=== PATIENT | female | born 1995 | race Caucasian/White ===

== ENCOUNTER 2016-03-21 21:57 | Emergency (ER) | payer OTHER ==
[2016-03-21 22:06] VITALS: BP 121/72
[2016-03-22] MEDS ORDERED: Ibuprofen TAB* 600 MG PO ONE (00:14)
--- NOTE | 2016-03-22 00:31 | ED ---
Lower Extremity - HPI Summary HPI Summary: [facility] and rolled her ankle when advancing forward. Unable to bear weight and now swollen. Denies knee or toe pain. No allev factors attempted. - History of Current Complaint Chief Complaint: EDExtremityLower Stated Complaint: LEFT FOOT INJURY Time Seen by Provider: 03/22/16 00:11 Hx Obtained From: Patient Onset of Pain: Immediate Severity Initially: Mild Severity Currently: Mild Pain Intensity: 5 Timing: Constant Location: Is Discrete @ - L lateral ankle/foot Character Of Pain: Aching Associated Signs And Symptoms: Positive: Swelling - Allergies/Home Medications Allergies/Adverse Reactions: Allergies Allergy/AdvReac Type Severity Reaction Status Date / Time Fish Allergy Allergy Unknown Verified 03/21/16 22:02 Reaction Details Shellfish Allergy Allergy Anaphylatic Verified 03/21/16 22:02 Shock PMH/Surg Hx/FS Hx/Imm Hx Previously Healthy: Yes Infectious Disease History: No Infectious Disease History: Denies: Traveled Outside the [place] in Last 30 Days - Social History Alcohol Use: Rare Substance Use Type: Reports: None Smoking Status (MU): Never Smoked Tobacco Review of Systems Positive: Arthralgia All Other Systems Reviewed And Are Negative: Yes Physical Exam Triage Information Reviewed: Yes Vital Signs On Initial Exam: Initial Vitals Temp Pulse Resp BP Pulse Ox 98.3 F 75 16 121/72 100 03/21/16 22:02 03/21/16 22:02 03/21/16 22:02 03/21/16 22:02 03/21/16 22:02 Vital Signs Reviewed: Yes Appearance: Positive: Well-Appearing, No Pain Distress, Well-Nourished Skin: Positive: Warm, Skin Color Reflects Adequate Perfusion, Dry Respiratory/Lung Sounds: Positive: Clear to Auscultation, Breath Sounds Present Cardiovascular: Positive: Normal, RRR, Pulses are Symmetrical in both Upper and Lower Extremities Musculoskeletal: Positive: Strength/ROM Intact, Pain @ - L ATF ligament distribution and lateral malleolus. SILT S/S/T/DP/SP intact bilater. 5/5 EHL/ FHL/DF/PF bilateral. Cap refil less than 2 seconds. Neurological: Positive: Normal, Sensory/Motor Intact, Alert, Oriented to Person Place, Time, CN Intact II-III, Reflexes Intact, Abnormal Gait - Due to pain and unable to bear weight. Diagnostics - Vital Signs Vital Signs Temp Pulse Resp BP Pulse Ox 03/21/16 22:02 98.3 F 75 16 121/72 100 - Laboratory Lab Statement: Any lab studies that have been ordered have been reviewed, and results considered in the medical decision making process. Lower Extremity Course/Dx - Diagnoses Differential Diagnosis/HQI/PQRI: Positive: Fracture (Closed), Sprain, Strain, Other - Primary concern for moderate grade ankle sprain vs distal fibula fx. No knee or toe pains. Provider Diagnoses: Ankle sprain Discharge - Discharge Plan Condition: Stable Disposition: HOME Patient Education Materials: Ankle Sprain (ED) Referrals: [facility] LESTER Lomeli [Primary Care Provider] - If Needed
--- NOTE | 2016-03-22 07:52 | RAD ---
Indication: Lateral malleolus region pain and edema following injury. Comparison: None. Technique: AP, mortise, and lateral views LEFT ankle. Report: Normal articular alignment. Negative for fracture or osteochondral lesion. Unremarkable soft tissue contours. IMPRESSION: Negative exam.
== END 2016-03-22 02:00 | disposition home or self-care (01) ==
LOC: ED 21:57
DX: S93.402A Sprain of unspecified ligament of left ankle, initial encounter (principal); X50.9XXA Other and unspecified overexertion or strenuous movements or postures, initial encounter; Y93.89 Activity, other specified; Y92.9 Unspecified place or not applicable; R60.0 Localized edema
CPT/HCPCS: 99282; A9270-GY

== ENCOUNTER 2017-06-22 12:39 | Emergency (ER) | payer OTHER ==
[2017-06-22 12:58] VITALS: BP 108/77
--- NOTE | 2017-06-22 13:24 | UC ---
Throat Pain/Nasal Dany HPI - HPI Summary HPI Summary: c/o sore throat and gland swelling for several days. Denies fever, cough, or nasal discharge. History of Hypothyroidism, depression and anxiety. LMD 5 days ago. - History of Current Complaint Chief Complaint: UCRespiratory Stated Complaint: [place]S SORE THROAT Time Seen by Provider: 06/22/17 12:45 Hx Obtained From: Patient Hx Last Menstrual Period: IUD IN PLACE ?: No Onset/Duration: Sudden Onset, Lasting Days Severity: Moderate Pain Intensity: 6 Cough: None Associated Signs & Symptoms: Positive: Dysphagia - Epiglottits Risk Factors Epiglottis Risk Factors: Negative - Allergies/Home Medications Allergies/Adverse Reactions: Allergies Allergy/AdvReac Type Severity Reaction Status Date / Time MS Fish Allergy Allergy Unknown Verified 06/22/17 12:50 [Fish Allergy] Reaction Details MS Shellfish Allergy Allergy Anaphylatic Verified 06/22/17 12:50 [Shellfish Allergy] Shock Home Medications: Home Medications Levonorgestrel (Iud) [Mirena IUD] 1 udc VAGINAL DAILY 06/22/17 [History Confirmed 06/22/17] PMH/Surg Hx/FS Hx/Imm Hx Previously Healthy: Yes Endocrine History: Hypothyroidism Psychological History: Anxiety, Depression - Surgical History Surgical History: Yes Surgery Procedure, Year, and Place: FEB 2017: REPAIR OF RIGHT ANKLE - Social History Alcohol Use: Rare Substance Use Type: None Smoking Status (MU): Never Smoked Tobacco Review of Systems Constitutional: Negative ENT: Sore Throat All Other Systems Reviewed And Are Negative: Yes Physical Exam Triage Information Reviewed: Yes Appearance: Well-Appearing, No Pain Distress, Well-Nourished Vital Signs: Initial Vital Signs Temp 98.8 F 06/22/17 12:52 Pulse 70 06/22/17 12:52 Resp 16 06/22/17 12:52 BP 108/77 06/22/17 12:52 Pulse Ox 100 06/22/17 12:52 Vital Signs Reviewed: Yes Eyes: Positive: Conjunctiva Clear ENT: Positive: Pharyngeal erythema, TMs normal, Tonsillar swelling, Tonsillar exudate, Uvula midline Neck exam: Normal Neck: Positive: Supple, Enlarged Nodes @ - anterior left neck Respiratory: Positive: Chest non-tender, Lungs clear, Normal breath sounds, No respiratory distress Cardiovascular: Positive: RRR, No Murmur, Pulses Normal, Brisk Capillary Refill Throat Pain/Nasal Course/Dx - Course Course Of Treatment: pharyngitis, presence of exudates, start amoxil as prescribed, continue oral hydration ,F/u with PCP in 2 weeks. - Differential Dx/Diagnosis Provider Diagnoses: Pharyngitis Discharge - Sign-Out/Discharge Documenting (check all that apply): Discharge/Admit/Transfer - Discharge Plan Condition: Good Disposition: HOME Prescriptions: Amoxicillin PO (*) [Amoxicillin 875 MG (*)] 875 mg PO BID 10 Days #20 tab Patient Education Materials: Amoxicillin (By mouth), Pharyngitis (ED) Referrals: [facility] - Abram DÍAZ [Primary Care Provider] - - Billing Disposition and Condition Condition: GOOD Disposition: HOME
== END 2017-06-22 13:39 | disposition home or self-care (01) ==
LOC: UCEAST 12:39
DX: J02.9 Acute pharyngitis, unspecified (principal); R59.1 Generalized enlarged lymph nodes; E03.9 Hypothyroidism, unspecified; F41.9 Anxiety disorder, unspecified; F32.9 Major depressive disorder, single episode, unspecified
CPT/HCPCS: 87070; 87651; 99212; G0463

== ENCOUNTER 2017-07-22 14:50 | Emergency (ER) | payer OTHER ==
[2017-07-22 15:10] VITALS: BP 118/84
--- NOTE | 2017-07-22 15:15 | UC ---
UC General HPI - HPI Summary HPI Summary: 22 yo female c/o several days sinus congestion, sniffles and cough. Feels that the cold has gone into her chest. No hemoptysis, no chest pain. No rash. No GI issues, except with a lot of coughing. no rash. no gi/gu issues. Hx bronchitis in the past. Immun (incl tdap utd) Has felt sick for the past month -> [facility] Seen by outlying physician 8 days ago, advised viral bronchitis, rx albuterol. This helped but sx worse, and albuterol not effective today. - History of Current Complaint Chief Complaint: UCRespiratory Stated Complaint: COUGH Time Seen by Provider: 07/22/17 15:12 Hx Obtained From: Patient Hx Last Menstrual Period: unknown Pain Intensity: 3 - Allergy/Home Medications Allergies/Adverse Reactions: Allergies Allergy/AdvReac Type Severity Reaction Status Date / Time shellfish derived Allergy Anaphylatic Verified 07/22/17 15:19 Shock fish allergy Allergy Unknown Uncoded 07/22/17 15:19 Reaction Details Home Medications: Home Medications Albuterol HFA INHALER* [Ventolin HFA Inhaler*] 1 puff IH Q6HR 07/22/17 [History Confirmed 07/22/17] FLUoxetine CAP* [Prozac CAP*] 20 mg PO DAILY 07/22/17 [History Confirmed ] Levothyroxine TAB* [Synthroid 125 MCG TAB*] 125 mg PO 07/22/17 [History] Levothyroxine TAB* [Synthroid 75 MCG TAB*] 75 mcg PO DAILY 07/22/17 [History Confirmed 07/22/17] buPROPion HCl [Bupropion HCl Sr] 150 mg PO DAILY 07/22/17 [History Confirmed 01/27] PMH/Surg Hx/FS Hx/Imm Hx - Additional Past Medical History Additional PMH: hx ramo's dz Previously Healthy: Yes - Surgical History Surgical History: Yes Surgery Procedure, Year, and Place: FEB 2017: REPAIR OF RIGHT ANKLE - Family History Known Family History: Positive: Unknown - Social History Occupation: Student Alcohol Use: Rare Substance Use Type: None Smoking Status (MU): Never Smoked Tobacco Review of Systems Constitutional: Fever, Fatigue Skin: Negative Eyes: Negative ENT: Sore Throat, Nasal Discharge, Sinus Congestion Respiratory: Cough Cardiovascular: Negative Gastrointestinal: Negative Genitourinary: Negative Motor: Negative Neurovascular: Negative Musculoskeletal: Negative Neurological: Negative Psychological: Negative Is Patient Immunocompromised?: No All Other Systems Reviewed And Are Negative: Yes Physical Exam Triage Information Reviewed: Yes Appearance: Well-Nourished - sitting up, nad Vital Signs: Initial Vital Signs Temp 98.5 F 07/22/17 14:52 Pulse 88 07/22/17 14:52 Resp 18 07/22/17 14:52 BP 118/84 07/22/17 14:52 Pulse Ox 100 07/22/17 14:52 Vital Signs Reviewed: Yes Eye Exam: Normal - grossly normal ENT: Positive: Pharyngeal erythema - mild post phary redness, no sores / exudates appreciated. Uvula midline., Nasal congestion, TM dull Neck exam: Normal Neck: Positive: Supple, Nontender Respiratory Exam: Other - RR normal + rhonchorus cough. + scattered exp wheeze Respiratory: Positive: No accessory muscle use, Respiratory distress, Wheezing Cardiovascular Exam: Normal Cardiovascular: Positive: RRR, No Murmur, Pulses Normal, Brisk Capillary Refill Abdominal Exam: Normal Abdomen Description: Positive: Nontender Musculoskeletal Exam: Normal - gait steady, moves x 4 ext's Neurological Exam: Normal - grossly nonfocal Psychological Exam: Normal - conversing easily and appropriately Skin Exam: Normal - no visible or reported rash Course/Dx - Course Course Of Treatment: CXR - see report in [facility]. NAD. No radiographic evidence of acute dz. Reviewed with pt. Declined albuterol nebulizer. Reviewed coa / tx plan. Questions as posed answered to the best of my ability. Will place on short course prednisone, d/w pt. Denies SI. Encourage f/u [facility] next week. - Differential Dx - Multi-Symptom Provider Diagnoses: Acute bronchitis with wheezing Discharge - Sign-Out/Discharge Documenting (check all that apply): Discharge/Admit/Transfer - Discharge Plan Condition: Stable Disposition: HOME Prescriptions: Albuterol HFA INHALER* [Ventolin HFA Inhaler*] 1 - 2 puff INH Q6H PRN #1 mdi PRN Reason: Wheezing Azithromyxin FAM (NF) [Z-Fam (Zithromax) 250 mg tabs #6] 2 tab PO .TODAY, THEN 1 DAILY #6 tab predniSONE TAB* [Deltasone 10 MG TAB*] 10 mg PO DAILY #8 tab Patient Education Materials: Acute Bronchitis (ED), Bronchospasm (ED), Wheezing (ED) Referrals: [facility] - Abram DÍAZ [Primary Care Provider] - Additional Instructions: Follow up [facility] approximately one week for recheck. Seek medical attention for worse or new problems in the meantime. - Billing Disposition and Condition Condition: STABLE Disposition: Home
--- NOTE | 2017-07-22 15:53 | RAD ---
INDICATION: Cough COMPARISON: None TECHNIQUE: PA and lateral views of the chest were obtained. FINDINGS: The heart and mediastinum are normal in size and contour. The lungs are grossly clear. There is no evidence of large pleural effusion. Visualized bones are normal for the patient's age. There is no radiographic evidence of free air beneath the diaphragm IMPRESSION: No radiographic evidence of acute cardiopulmonary disease.
== END 2017-07-22 16:40 | disposition home or self-care (01) ==
LOC: UCEAST 14:50
DX: J20.9 Acute bronchitis, unspecified (principal); E06.3 Autoimmune thyroiditis; Z91.013 Allergy to seafood
CPT/HCPCS: 71046; 99212; G0463